=== PATIENT | female | born 1960 | race Caucasian/White ===

== ENCOUNTER 2017-08-23 08:19 | Day surgery (SDC) | payer BC ==
[2017-08-16 14:29] VITALS: BMI 22.4
[~2017-08-23 08:19] MED LIST: CYCLOPENTOLATE HCL 1% OPHTH SOLN 2 ML BOTTLE OD SCH; GENTAMICIN SULFATE 0.3% OPHTHALMIC (EYE DROPS) 5ML BOTTLE OD SCH; KETOROLAC TROMETHAMINE 0.5% 5 ML BOTTLE OPTHALMIC OD SCH; PHENYLEPHRINE 2.5% OPHTH SOLN 15 ML BOTTLE OD SCH; TROPICAMIDE 1% OPHTH SOLN 15 ML BOTTLE OD SCH
[2017-08-23] MEDS: CYCLOPENTOLATE HCL 1% OPHTH SOLN 2 ML BOTTLE ONE ×5 (08:45→09:05)
[2017-08-23] MEDS: PHENYLEPHRINE 2.5% OPHTH SOLN 15 ML BOTTLE ONE ×5 (08:45→09:05)
[2017-08-23] MEDS: TROPICAMIDE 1% OPHTH SOLN 15 ML BOTTLE ONE ×5 (08:45→09:05)
[2017-08-23] MEDS: GENTAMICIN SULFATE 0.3% OPHTHALMIC (EYE DROPS) 5ML BOTTLE ONE ×5 (08:45→09:05)
[2017-08-23] MEDS: KETOROLAC TROMETHAMINE 0.5% 5 ML BOTTLE OPTHALMIC ONE ×5 (08:45→09:05)
[2017-08-23 08:51] VITALS: TEMP 97.6
[2017-08-23] MEDS ORDERED: BUPIVACAINE HCL/PF 0.5% (5MG/ML) 10 ML VIAL ONE (09:18)
[2017-08-23] MEDS ORDERED: LIDOCAINE HCL/PF 2% SDV 5ML VIAL ONE (09:18)
[2017-08-23] MEDS ORDERED: POVIDONE-IODINE 5% OPHTHALMIC PREP 30 ML SOLUTION ONE (09:18)
[2017-08-23] MEDS ORDERED: ACETYLCHOLINE 1:100 INTRA-OCUL 20 MG/2 ML KIT ONE (09:18)
[2017-08-23] MEDS ORDERED: MIDAZOLAM HCL 2 MG/2 ML SINGLE DOSE VIAL ONE (09:59)
[2017-08-23] MEDS ORDERED: ACETAMINOPHEN 325 MG TABLET (FP) PO PRN (10:52)
[2017-08-23 11:47] VITALS: BP 97/51; PULSE 66
--- NOTE | 2017-08-23 11:53 | OP ---
DATE OF OPERATION: 08/23/2017 PREOPERATIVE DIAGNOSIS: Cataract, right eye. POSTOPERATIVE DIAGNOSIS: Cataract, right eye. PROCEDURE: Cataract extraction via phacoemulsification with insertion of posterior chamber lens implant, right eye. SURGEON: Tk Long MD MAJOR ASSEMBLY LINEMAN: Carlie Bassett MD ANESTHESIA: Regional with sedation. ESTIMATED BLOOD LOSS: Less than 1 mL. SPECIMENS: None. COMPLICATIONS: None. DESCRIPTION OF PROCEDURE: The patient was identified in the holding area. After all risks, benefits, and alternatives were explained to the patient, informed consent was obtained. The right eye was marked with a marking pen. The patient then entered the operating room on an eye stretcher. After a formal time-out was performed, a 3 mL injection of equal parts 2% lidocaine with epinephrine and 0.5% Marcaine was given around the right eye. The right eye was then prepped and draped in the usual sterile fashion. An eyelid speculum was placed beneath the eyelid of the right eye. A superotemporal paracentesis incision was created using n01-snurst blade. Viscoelastic was injected into the anterior chamber. A 2.4-mm keratome blade was used to make an infratemporal incision. A 360-degree continuous curvilinear capsulorrhexis was then created using thin cystotome and Utrata forceps. Hydrodissection was performed with balanced saline solution on a cannula. Phacoemulsification was introduced to disassemble and remove the nucleus in its entirety. Irrigation/aspiration was then used to remove any remaining cortical material from the eye. The capsular bag was then refilled using viscoelastic. An Sam Model [id number] with a power of 25.0 diopter serial number [id number] was inspected and found to be defect free and injected into the capsular bag. Irrigation/aspiration was used to remove any remaining viscoelastic from the eye. The anterior chamber was then reformed using balanced saline solution. Intracameral injections of Miochol and Miostat were then administered to the right eye, and the pupil came down and was round. All wounds were hydrated with balanced saline solution. Of note, the main wound was found to be leaky, so an interrupted 10-0 nylon suture was placed. All wounds were then noted to be watertight. The anterior chamber was deep. The eye had an adequate pressure. The lens was perfectly centered in the capsular bag, and there was a red reflex present. Topical antibiotic eyedrops and ointment were then administered to the right eye. The eyelid speculum was removed from the right eye. The right eye was patched and shielded. The patient tolerated the procedure well and left the operating room in stable condition to follow up in the eye clinic tomorrow at 9 o'clock. TK LONG M.D. [id number]
== END 2017-08-23 11:45 | disposition home or self-care (01) ==
LOC: FASU 08:19
PROVIDERS: ATTEND Ophthalmology
PROC: 08RJ3JZ Replacement of Right Lens with Synthetic Substitute, Percutaneous Approach (ICD-10-PCS; principal; 2017-08-23 10:11)
DX: H26.8 Other specified cataract (principal)

== ENCOUNTER → 2018-01-26 | Day surgery (SDC) | payer BC ==
--- NOTE | 2018-01-27 16:53 | PATH ---
Surgical Pathology Report Patient Name: AVTAR [facility]. Rec. #: [id number] /Age/Gender: 1960 (Age: 57) / F Account: [id number] Location: [facility] Taken: 01/26/2018 Received: 01/26/2018 Reported: 01/27/2018 Physicians: Lior Varghese M.D. Specimen(s) Received A: BREAST WITH CALCS STEREOTACTIC BIOPSY B: BREAST WITHOUT CALCS STEREOTACTIC BIOPSY Clinical History Nonpalpable lesion Mammographic findings: Microcalcification, suspicious Final Diagnosis A. 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 B. BREAST, RIGHT, WITHOUT CALCS, STEREOTACTIC BIOPSY: BENIGN BREAST TISSUE SHOWING FIBROADENOMA AND FIBROCYSTIC CHANGES. Electronically Signed Hannah Mcadams M.D. Gross Description A. Received in formalin labeled "right breast with calcifications," are 2 hoffman-yellow, cylindrical portions of fibroadipose tissue measuring 0.7 and 1.2 cm in length and averaging 0.3 cm in diameter. The specimens are submitted in toto in one cassette. B. Received in formalin labeled "right breast without calcifications," are 6 hoffman-yellow, cylindrical portions of fibroadipose tissue ranging from 0.6-1.2 cm in length and averaging 0.3 cm in diameter. The specimens are submitted in toto in one cassette. Time to formalin fixation: 3 minutes Total formalin fixation time: Approximately 8 hours. 01/26/2018 [facility]01/26/2018
== END | disposition home or self-care (01) ==
LOC: FMAMMOTONE 09:21
PROVIDERS: ATTEND Surgery Surgical Oncology
PROC: 0HBT3ZX Excision of Right Breast, Percutaneous Approach, Diagnostic (ICD-10-PCS; principal; 2018-01-26)
DX: D24.1 Benign neoplasm of right breast (principal); N64.89 Other specified disorders of breast; R92.1 Mammographic calcification found on diagnostic imaging of breast
CPT/HCPCS: 19081; 87899; A4648

== ENCOUNTER 2024-07-31 08:23 | Day surgery (SDC) | payer OTHER, BC ==
[2024-07-26 10:15] VITALS: BMI 24.3
[~2024-07-31 08:23] MED LIST changes: -CYCLOPENTOLATE HCL 1% OPHTH SOLN 2 ML BOTTLE OD SCH; +CYCLOPENTOLATE HCL 1% OPHTH SOLN 2 ML BOTTLE OS SCH; -GENTAMICIN SULFATE 0.3% OPHTHALMIC (EYE DROPS) 5ML BOTTLE OD SCH; -KETOROLAC TROMETHAMINE 0.5% 5 ML BOTTLE OPTHALMIC OD SCH; -PHENYLEPHRINE 2.5% OPHTH SOLN 15 ML BOTTLE OD SCH; -TROPICAMIDE 1% OPHTH SOLN 15 ML BOTTLE OD SCH
[2024-07-31] MEDS ORDERED: OFLOXACIN 0.3% OPHTHALMIC SOLUTION 5 ML BOTTLE ONE (08:41)
[2024-07-31] MEDS ORDERED: PHENYLEPHRINE 2.5% OPTHALMIC DROP 2ML BOTTLE ONE (08:41)
[2024-07-31] MEDS ORDERED: TROPICAMIDE 1% OPHTH SOLN 15 ML BOTTLE ONE (08:41)
[2024-07-31] MEDS: PHENYLEPHRINE 2.5% OPHTH SOLN 15 ML BOTTLE OS SCH (08:50)
[2024-07-31] MEDS: TROPICAMIDE 1% OPHTH SOLN 15 ML BOTTLE OS SCH (08:50)
[2024-07-31] MEDS: KETOROLAC TROMETHAMINE 0.5% EYE DROP 1 DROP DROPS ONE (08:50)
[2024-07-31] MEDS: CYCLOPENTOLATE HCL 1% OPHTH SOLN 2 ML BOTTLE ONE (08:50)
[2024-07-31] MEDS: OFLOXACIN 0.3% OPHTHALMIC SOLUTION 5 ML BOTTLE OS SCH (08:50)
[2024-07-31] MEDS: KETOROLAC TROMETHAMINE 0.5% EYE DROP 1 DROP DROPS OS SCH (08:55)
[2024-07-31] MEDS ORDERED: EPI-SHUGARCAINE (EPINEPHRINE 0.025% & LIDOCAINE-PF 0.75%) 4ML ONE (09:00)
[2024-07-31] MEDS ORDERED: POVIDONE-IODINE 5% OPHTHALMIC PREP 30 ML SOLUTION ONE (09:00)
[2024-07-31] MEDS ORDERED: TETRACAINE 0.5% OPHTH SOLN 2 ML BOTTLE ONE ×2 (09:00→10:46)
[2024-07-31] MEDS ORDERED: BACITRACIN/POLYMYXIN OPH OINT 3.5 GM TUBE ONE (09:00)
[2024-07-31] MEDS ORDERED: BETAXOLOL HCL 0.25% OPHTHALMIC 10 ML DROPSBTL ONE (09:00)
[2024-07-31] MEDS ORDERED: NEO/POLYMYX B SULF/DEXAMETH OPHTHALMIC 5ML BOTTLE ONE (09:01)
[2024-07-31] MEDS ORDERED: ACETAMINOPHEN 325 MG TABLET (FP) PO PRN (09:07)
[2024-07-31] MEDS ORDERED: MIDAZOLAM HCL 2 MG/2 ML SINGLE DOSE VIAL ONE ×3 (10:23→10:52)
[2024-07-31 12:15] VITALS: RESP 16; TEMP 97.3
[2024-07-31 12:26] VITALS: BP 118/55; PULSE 62
== END 2024-07-31 12:20 | disposition home or self-care (01) ==
LOC: FASU 08:23
PROVIDERS: ATTEND Ophthalmology
PROC: 08RK3JZ Replacement of Left Lens with Synthetic Substitute, Percutaneous Approach (ICD-10-PCS; principal; 2024-07-31 10:43)
DX: H25.89 Other age-related cataract (principal)
CPT/HCPCS: 66984; V2632